=== PATIENT | female | born 1940 | race Caucasian/White ===

== ENCOUNTER → 2018-12-29 | Outpatient (CLI) | payer MEDICARE ==
[2018-11-24 13:06] VITALS: BP 129/83
[2019-01-02 14:24] LABS: PROTHROMBIN TIME PATIENT 30.7 SEC (11.7-14.0)
== END | disposition home or self-care (01) ==
LOC: SPEC 05:49
PROVIDERS: ATTEND Internal Medicine
DX: S72.402D Unspecified fracture of lower end of left femur, subsequent encounter for closed fracture with routine healing (principal)
CPT/HCPCS: 36415; 85610

== ENCOUNTER → 2019-01-02 | Outpatient (CLI) | payer MEDICARE ==
[2018-11-24 13:06] VITALS: BP 129/83
[2019-01-02 05:10] LABS: PROTHROMBIN TIME PATIENT 31.7 SEC (11.7-14.0)
== END | disposition home or self-care (01) ==
LOC: SPEC 02:21 → EDSTATUS 14:27
PROVIDERS: ATTEND Internal Medicine
DX: S72.402D Unspecified fracture of lower end of left femur, subsequent encounter for closed fracture with routine healing (principal)
CPT/HCPCS: 36415; 85610